=== PATIENT | female | born 1945 | race Caucasian/White ===

== ENCOUNTER 2023-05-14 09:54 | Inpatient (IN) ==
--- NOTE | 2023-04-24 10:04 | PAT Medication Instructions ---
Medication Instructions Date of Service April 24, 2023 Home Medications albuterol sulfate 90 mcg/actuation aerosol inhaler 1 inh inhalation QID PRN sob aspirin 81 mg capsule 81 mg PO QAM atorvastatin 40 mg tablet 40 mg PO QAM gabapentin 100 mg capsule 100 mg PO QAM meloxicam 15 mg tablet 15 mg PO QAM naproxen sodium 220 mg tablet 220 mg PO BID PRN Pain omeprazole 40 mg capsule,delayed release 40 mg PO QAM ropinirole 0.5 mg tablet 0.5 mg PO QPM trazodone 100 mg tablet 100 mg PO HS vit A 300 mcg-C 200 mg-E 27 mg-lutein 2 mg and minerals tablet (Healthy Eyes) 1 tab PO QPM ASK your surgeon for instructions meloxicam 15 mg tablet 15 mg PO QAM naproxen sodium 220 mg tablet 220 mg PO BID PRN Pain ASK your prescriber and surgeon aspirin 81 mg capsule 81 mg PO QAM STOP taking 2 weeks before surgery vit A 300 mcg-C 200 mg-E 27 mg-lutein 2 mg and minerals tablet (Healthy Eyes) 1 tab PO QPM Take morning of surgery With a small sip of water, OTHERWISE NOTHING TO EAT OR DRINK AFTER MIDNIGHT: albuterol sulfate 90 mcg/actuation aerosol inhaler 1 inh inhalation QID PRN sob (use if needed; please bring with you to hospital day of surgery if possible) atorvastatin 40 mg tablet 40 mg PO QAM gabapentin 100 mg capsule 100 mg PO QAM omeprazole 40 mg capsule,delayed release 40 mg PO QAM Take evening before surgery albuterol sulfate 90 mcg/actuation aerosol inhaler 1 inh inhalation QID PRN sob (if needed) ropinirole 0.5 mg tablet 0.5 mg PO QPM trazodone 100 mg tablet 100 mg PO HS Other Notes If you have any questions please call us at [phone] or [phone] or [phone] or [phone]
--- NOTE | 2023-04-30 12:34 | Anesthesiology Consultation ---
Date of Service April 30, 2023 Assessment & Plan (1) Encounter for pre-operative examination: COVID screening: Per assessment on 04/30: No known COVID-19 positive contacts or current COVID-19 related symptoms. Travel screen negative. At surgeon discretion if preop Covid testing being done. Chart Review Chart Review: Acceptable Risk for Surgery and Patient seen in Pre Admission Testing Teaching & Discussion Pre-Anesthesia Teaching/Discussion Notes: Instructed NPO after midnight before surgery,except medications with 15 cc of water. Medication instructions provided according to the PAT guidelines. History Surgery Operation Date: 05/14/23 07:45 Proposed Procedures p T10-T11 Decompression and Fusion, L3-L5 Decompression with Possible Fusion, Spinal Cord Monitoring - Patrice Flores DO Height/Weight Height: 5 ft 2 in Weight: 65.5 kg Allergies Allergy/AdvReac Type Severity Reaction Status Date / Time Sulfa (Sulfonamide Allergy itching Verified 04/23/23 13:20 Antibiotics) Medications Home Medications Medication Instructions Recorded Confirmed Last Taken albuterol sulfate 90 mcg/actuation 1 inh inhalation QID PRN sob 04/23/23 04/23/23 Unknown aerosol inhaler aspirin 81 mg capsule 81 mg PO QAM 04/23/23 04/23/23 Unknown atorvastatin 40 mg tablet 40 mg PO QAM 04/23/23 04/23/23 Unknown gabapentin 100 mg capsule 100 mg PO QAM 04/23/23 04/23/23 Unknown meloxicam 15 mg tablet 15 mg PO QAM 04/23/23 04/23/23 Unknown naproxen sodium 220 mg tablet 220 mg PO BID PRN Pain 04/23/23 04/23/23 Unknown omeprazole 40 mg capsule,delayed 40 mg PO QAM 04/23/23 04/23/23 Unknown release ropinirole 0.5 mg tablet 0.5 mg PO QPM 04/23/23 04/23/23 Unknown trazodone 100 mg tablet 100 mg PO HS 04/23/23 04/23/23 Unknown vit A 300 mcg-C 200 mg-E 27 1 tab PO QPM 04/23/23 04/23/23 Unknown mg-lutein 2 mg and minerals tablet (Healthy Eyes) Past Medical History Medical History Anxiety and depression COPD (chronic obstructive pulmonary disease) GERD (gastroesophageal reflux disease) HLD (hyperlipidemia) Incontinence of urine Memory loss, short term Osteoarthritis RLS (restless legs syndrome) Spinal stenosis Exercise / Class Metabolic Activity III < 4 Walking/Shop/Light housework (uses walker) Past Surgical History Surgical History History of cataract surgery History of left hip replacement History of tooth extraction Past Anesthesia History No Hx of Anesthesia Complications and No Family Hx of Anesthesia Complications History of PONV No Hx of PONV and No Hx of Motion Sickness Social History Smoking Status: Current some day smoker tobacco type: e-cigarettes Do You Dip or Chew Tobacco: No Smoking End Date: Quit 3 years ago cigarettes-- currently vapes on occasion Hx Alcohol Use: Yes Alcohol type: beer alcohol intake frequency: holidays/special occasions only Hx Substance Use: No substance use type: does not use Review of Systems Patient denies chest pain, shortness of breath, fever, chills, cough, wheezing, palpitations. Physical Exam Vital Signs VITALS BP 112/72 P 68 TEMP 98.2 SP02 97%RA RESP 16 PHYSICAL Full cervical extension range of motion. Full TMJ range of motion. TMD 3 finger breaths Mallampati Score 3 Dentition: edentulous Lungs: clear throughout to auscultation Cardiac: regular rate and rhythm, no murmurs noted Spine: normal Carotid arteries: negative bruit Extremities: no LE edema Lab Results Anesthesia Preop Results Results Anesthesia Widget: WBC 8.68 K/ul (4.8-10.8) 04/30/23 Hgb 13.3 g/dl (12.0-16.0) 04/30/23 Hct 40.0 % (37.0-47.0) 04/30/23 Plt 264 K/uL (130-400) 04/30/23 Na 140 mmol/L (136-145) 04/30/23 K 3.7 mmol/L (3.5-5.1) 04/30/23 Cl 108 mmol/L (98-107) H 04/30/23 CO2 27 mmol/L (21-32) 04/30/23 BUN 14 mg/dl (6-23) 04/30/23 Creat 0.68 mg/dl (0.6-1.2) 04/30/23 Glucose Level 98 mg/dl (70-99(Fasting)) 04/30/23 PT 11.0 Seconds (9.0-12.0) 04/30/23 PTT 25.0 Seconds (21.0-31.0) 04/30/23 INR 1.0 (0.9-1.1) 04/30/23 Urine Color Yellow 04/30/23 Urine Appearance Clear (Clear) 04/30/23 Urine pH 5.5 (4.5-7.5) 04/30/23 Urine Specific Lambert 1.025 (1.000-1.030) 04/30/23 Urine Protein Negative (Negative) 04/30/23 Urine Glucose (UA) Negative (Negative) 04/30/23 Urine Ketones Trace (Negative) H 04/30/23 Urine Blood Trace (Negative) H 04/30/23 Urine Nitrite Negative (Negative) 04/30/23 Urine Bilirubin Negative (Negative) 04/30/23 Urine Urobilinogen Negative (Negative) 04/30/23 Urine Leukocyte Esterase Negative (Negative) 04/30/23 Urine WBC (Auto) 1-5 /hpf (0-5) 04/30/23 Urine RBC (Auto) 0-4 /hpf (0-4) 04/30/23 Urine Hyaline Casts (Auto) 1-5 /lpf (0-5) 04/30/23 Urine Epithelial Cells (Auto) >30 /lpf (0-5) H 04/30/23 Urine Bacteria (Auto) Negative (Negative) 04/30/23 Blood Type A Negative 04/30/23 Antibody Screen NEGATIVE 04/30/23 Testing Electrocardiogram Date: 04/30/23 NSR at 61bpm. Chest X-Ray Date: 04/30/23 FINDINGS: PA and lateral chest radiographs are obtained. No prior studies are available for comparison at the time of dictation. The cardiomediastinal silhouette is unremarkable noting atherosclerotic calcification of the thoracic aorta. The lungs and pleural spaces are clear. There is no pneumothorax. The skeletal structures are osteopenic. The bony thorax appears intact. Degenerative change and mild scoliosis is noted in the spine. IMPRESSION: No active disease in the chest. COVID-19 Risk Screen Screening Information COVID-19 Screen Date: 04/30/23 Exposure 21 Days Family/Household +COVID Last 21 Days: No Exposure 10 Days Any COVID Exposure Last 10 Days: No Symptoms Last 10 Days Experienced COVID Sx Last 10 Days: No + COVID 0-90 Days COVID + in Last 0-90 Days: No
[~2023-05-14 09:54] MED LIST: ACETAMINOPHEN 500 MG TAB PO SCH; CeleBREX 200 MG CAP PO SCH; GABAPENTIN 300 MG CAP PO SCH; LR 15ML/HR IV SCH; ceFAZolin 2000MG 2,000 MG/15 ML SYR IV SCH
[2023-05-14] MEDS ORDERED: GLYCOPYRROLATE 0.2 MG/ML VIAL ONE (10:14)
[2023-05-14] MEDS ORDERED: MIDAZOLAM HCL 1 MG/ML 2ML VIAL ONE (10:14)
[2023-05-14] MEDS ORDERED: DEXAMETHASONE SOD INJ 4 MG/ML VIAL ONE (10:14)
[2023-05-14] MEDS ORDERED: fentaNYL citrate PF 100 MCG/2 ML VIAL ONE (10:14)
[2023-05-14] MEDS ORDERED: LIDOCAINE 2% 2 ML VIAL/AMP(20MG/ML) INFIL ONE (10:14)
[2023-05-14] MEDS ORDERED: PROPOFOL IV EMULSION 10 MG/ML 20 ML VIAL IV ONE (10:14)
[2023-05-14] MEDS ORDERED: NEOSTIGMINE METHYLSULFATE 1 MG/ML 10ML VIAL ONE (10:14)
[2023-05-14] MEDS ORDERED: ONDANSETRON INJ 2 MG/ML 2 ML VIAL ONE (10:14)
[2023-05-14] MEDS ORDERED: ROCURONIUM BROMIDE 10 MG/ML 5 ML VIAL IV ONE ×10 (10:16)
[2023-05-14] MEDS ORDERED: SUGAMMADEX SODIUM 200 MG/2 ML VIAL IV ONE (10:17)
[2023-05-14] MEDS ORDERED: ONDANSETRON INJ 2 MG/ML 2 ML VIAL IV PRN ×2 (11:04→17:25)
[2023-05-14] MEDS ORDERED: PROMETHAZINE HCL 6.25 MG in SODIUM CHLORIDE 0.9% 50 ML IV PRN (11:04)
[2023-05-14] MEDS ORDERED: ATROPINE SULFATE 0.1 MG/ML 10ML SYR IV PRN (11:04)
[2023-05-14] MEDS ORDERED: ePHEDrine sulfate 50 MG/ML AMP IV PRN (11:04)
--- NOTE | 2023-05-14 11:16 | History & Physical Bridge Note ---
Date of Service May 14, 2023 History & Physical Bridge Note I have examined the patient, reviewed the History & Physical and in the interval since the performance of the History & Physical I have noted the following changes of clinical significance: no changes noted
--- NOTE | 2023-05-14 11:17 | History & Physical Report ---
Date of Service May 14, 2023 Assessment & Plan (1) Myelopathy concurrent with and due to spinal stenosis of thoracic region: Plan: T10-T11 decompression and fusion, L3-L5 decompression with possible fusion History of Present Illness Chief Complaint: Back and leg pain with evidence of myelopathy Primary Care Provider: Delon Villanueva MD This is a 78-year-old female who presents my office with marked decline in status. She was diagnosed with cord compression myelopathy and is here for surgical intervention. Allergies Allergy/AdvReac Type Severity Reaction Status Date / Time Sulfa (Sulfonamide Allergy itching Verified 05/14/23 10:36 Antibiotics) Home Medications Medication Instructions Recorded Confirmed Type albuterol sulfate 90 mcg/actuation 1 inh inhalation QID PRN sob 04/23/23 05/14/23 History aerosol inhaler aspirin 81 mg capsule 81 mg PO QAM 04/23/23 05/14/23 History atorvastatin 40 mg tablet 40 mg PO QAM 04/23/23 05/14/23 History gabapentin 100 mg capsule 100 mg PO QAM 04/23/23 05/14/23 History meloxicam 15 mg tablet 15 mg PO QAM 04/23/23 05/14/23 History naproxen sodium 220 mg tablet 220 mg PO BID PRN Pain 04/23/23 05/14/23 History omeprazole 40 mg capsule,delayed 40 mg PO QAM 04/23/23 05/14/23 History release ropinirole 0.5 mg tablet 0.5 mg PO QPM 04/23/23 05/14/23 History trazodone 100 mg tablet 100 mg PO HS 04/23/23 05/14/23 History vit A 300 mcg-C 200 mg-E 27 1 tab PO QPM 04/23/23 05/14/23 History mg-lutein 2 mg and minerals tablet (Healthy Eyes) Past Med/Surg History Medical History Anxiety and depression COPD (chronic obstructive pulmonary disease) GERD (gastroesophageal reflux disease) HLD (hyperlipidemia) Incontinence of urine Memory loss, short term Osteoarthritis RLS (restless legs syndrome) Spinal stenosis Surgical History History of cataract surgery History of left hip replacement History of tooth extraction Social History (Reviewed 06/20/23 @ 10:36 by NIKA Collazo Smoking Status: Current some day smoker Smoking End Date: Quit 3 years ago cigarettes-- currently vapes on occasion; Second Hand Exposure: No; Do You Dip or Chew Tobacco: No; Tobacco Cessation Education Requested by Patient: No Hx Alcohol Use: Yes Alcohol type: beer Hx Substance Use: No Preferred Language: Bahraini Communication Ability: Effective Rn Admissions Required: No Beliefs That Will Affect Care: None Current Living Situation: Family Assistive Devices: Glasses and Walker Assistive Devices Comment: reading glasses Physical Exam Physical Exam: Patient is alert and oriented Heart regular rhythm Lungs clear Results & Data Results & Data Vital Signs (Past 12 Hours) Vital Signs Temp Pulse Resp BP Pulse Ox O2 Del Method 05/14/23 10:31 36.4 C L 75 20 117/74 97 Room Air
[2023-05-14] MEDS ORDERED: BUPIVACAINE/EPINEPHRINE 0.25% 1:200,000 30 ML VIAL ONE (11:26)
[2023-05-14] MEDS ORDERED: ceFAZolin 330 MG/ML 1 GM VIAL ONE ×2 (11:27→13:35)
[2023-05-14] MEDS ORDERED: PROPOFOL IV EMULSION 10 MG/ML 100 ML VIAL IV ONE (11:59)
[2023-05-14] MEDS ORDERED: KETAMINE 50 MG/5 ML SYRINGE ONE (12:34)
[2023-05-14] MEDS ORDERED: ePHEDrine sulfate 50 MG/ML SYR ONE (12:37)
[2023-05-14] MEDS ORDERED: FLOSEAL HEMOSTATIC MATRIX 10ML TOP ONE (12:55)
--- NOTE | 2023-05-14 14:31 | Operative Report ---
Post Operative Report Pre & Post Diagnosis Operation Date: 05/14/23 11:25 Pre-Op Diagnosis: Myelopathy concurrent with and due to spinal stenosis of thoracic region Lumbar spinal stenosis with neurogenic claudication Post-Op Diagnosis: Same I identified the patient and participated in the time-out.: Yes Procedure Operation Date: 05/14/23 11:25 Actual Procedures 1. Lumbar decompression bilaterally facetectomies and foraminotomies T10-T11 L3-L4 L4-L5. #2 posterior spinal fusion T10-T11 L3-L4 L4-L5. #3 placed posterior instrumentation T10-T11. #4 placement of infuse collagen sponge bone mass graft in the posterior gutters T10-T11 and L3-L5. #5 placement locally harvested morselized autograft and posterior gutters L3-L5. Surgeon Patrice Flores, Mucker Cofferdam Adelina Bhandari Estimated Blood Loss 250 Findings Consistent with Post-Op Diagnosis Specimens none Indications This is a 78-year-old female who presents with marked decline in neurologic status difficulty ambulating and evidence of neurogenic claudication. Subsequently she is here for surgical invention. Description of Procedure Patient was met with identified informed consent obtained. Patient was then taken to the operative suite underwent patient placed in a prone position the [place] table top Ned frame. All bony promises well-padded eyes inspected to ensure no external pressure placed monitor at this point thoracolumbar spine was prepped and draped in a sterile fashion. Identify the T10-T11 this patient sharp dissection with assistance of Bovie cautery from down to and exposing the T10-T11 lamina and transverse processes. I then performed a complete laminectomy of T10 including bilateral medial facetectomies to address severe spinal stenosis and cord compression. Pedicle screws were then placed in T10- T11 bilaterally with assistance of fluoroscopy and properly sized evelyn locked into place in place. The transverse processes of T10-T11 then burred to subcortical pain well. Infuse collagen sponge combined with master graft was then placed in the posterior gutters. I then proceeded to the lumbar spine and again sharp dissection with the assistance of Bovie cautery from down to and exposing the lamina transverse processes of L3-L4 L4-L5. From caudal cephalad fashion complete laminectomy of L4 and L3 was performed including bilateral medial facetectomies and foraminotomies addressing severe spinal stenosis. Transverse processes of L3 L4-5 were then burred to subcortical bleeding bone. Infuse bone sponge from mass graft and locally harvested morselized autograft was placed in the posterior gutters. 15 round SRUTHI drain were inserted at both levels and the incision was were closed with subcutaneous Vicryl and 4 Monocryl for final skin closure. Steri-Strips sterile dressings placed. Patient waken taken to PACU stable condition. Please note spinal cord monitoring was utilized at the procedure no changes noted. Lastly Adelina Bhandari was present at the entire procedure involved the patient positioning complex portions of the surgery and final skin closure. I attest to the content of the Intraoperative Record and any orders documented therein. Any exceptions are noted below.
[2023-05-14] MEDS: fentaNYL citrate PF 100 MCG/2 ML VIAL IV PRN ×3 (15:10→15:26)
--- NOTE | 2023-05-14 15:43 | Fluoroscopy Report ---
INTRAOPERATIVE RADIOGRAPHS CLINICAL HISTORY: Thoracic spinal fusion. Fluoro time: 37 seconds Ka,r: 10.40 mGy FINDINGS: 3 spot fluoroscopic views of the lower thoracic spine are presented. There is evidence of l aminectomy and posterior fusion at a lower thoracic spinal level. The exact level cannot be delineate d on these fluoroscopic images. This is reportedly at T10-T11. Interpedicular screws are present at b oth levels. The orthopedic hardware appears intact. IMPRESSION: Intraoperative images from thoracic spinal fusion surgery as above. Electronically signed by: Kirby Vickers M.D. 05/14/2023 3:42 PM
[2023-05-14] MEDS: HYDROmorphone INJ 1 MG/ML SYRINGE ONE ×2 (15:52→15:54)
[2023-05-14] MEDS: HYDROmorphone INJ 0.5 MG/0.5 ML SYR IV PRN ×3 (15:52→16:07)
--- NOTE | 2023-05-14 16:36 | Anesthesiology Progress Note ---
Date of Service May 14, 2023 Anesthesia Post Procedure Vital Signs Vital Signs: Temp Pulse Pulse Resp BP Pulse Ox O2 Del Method 05/14/23 16:30 36.4 C L 80 14 118/73 94 Nasal Cannula 05/14/23 16:25 83 14 97/56 L 98 Nasal Cannula 05/14/23 15:55 83 18 111/70 96 Nasal Cannula 05/14/23 16:15 75 12 110/70 93 Nasal Cannula 05/14/23 16:05 88 16 128/80 95 Nasal Cannula 05/14/23 15:45 96 H 18 127/101 H 96 Nasal Cannula 05/14/23 15:35 66 12 111/70 95 Oxymask 05/14/23 15:25 71 12 145/81 H 97 Oxymask 05/14/23 15:15 86 20 122/78 100 Oxymask 05/14/23 15:05 87 20 134/91 98 Oxymask 05/14/23 14:55 67 14 109/64 99 Oxymask 05/14/23 14:44 36.1 C L 76 12 123/66 96 Oxymask 05/14/23 10:31 36.4 C L 75 20 117/74 97 Room Air O2 Flow Rate 05/14/23 16:30 3 05/14/23 16:25 3 05/14/23 15:55 3 05/14/23 16:15 3 05/14/23 16:05 3 05/14/23 15:45 3 05/14/23 15:35 4 05/14/23 15:25 4 05/14/23 15:15 4 05/14/23 15:05 4 05/14/23 14:55 6 05/14/23 14:44 6 05/14/23 10:31 Pain Intensity Back: Pain Intensity: 7 Transfer of Care Handoff Completed per policy Notes Mental Status: alert / awake / arousable Patient Amnestic to Procedure: Yes Nausea / Vomiting: adequately controlled Pain: adequately controlled Airway Patency, RR, SpO2: stable & adequate BP & HR: stable & adequate Hydration State: stable & adequate Anesthetic Complications: no major complications apparent
[2023-05-14] MEDS ORDERED: NALOXONE HCL 0.4 MG/1 ML VIAL/CARP IV PRN (17:25)
[2023-05-14] MEDS ORDERED: ACETAMINOPHEN 1,000 MG/100 ML VIAL IV PRN (17:25)
[2023-05-14] MEDS ORDERED: HYDROmorphone INJ 0.5 MG/0.5 ML SYR IV PRN (17:25)
[2023-05-14] MEDS ORDERED: ACETAMINOPHEN 500 MG TAB PO PRN (17:25)
[2023-05-14] MEDS ORDERED: ALUMINUM/MAGNESIUM SUSP 30 ML UDC PO PRN (17:25)
[2023-05-14] MEDS ORDERED: SOD PHOSPHATE/SOD BIPHOSPHATE ENEMA 132 ML BTL PR PRN (17:25)
[2023-05-14] MEDS ORDERED: FAMOTIDINE 20 MG TAB PO PRN (17:25)
[2023-05-14] MEDS ORDERED: ONDANSETRON 4 MG OD TAB PO PRN (17:25)
[2023-05-14] MEDS ORDERED: MAGNESIUM HYDROXIDE SUSP 30 ML UDC PO PRN (17:25)
[2023-05-14] MEDS ORDERED: DO NOT ADMINISTER FLU VACCINE PRN (17:25)
[2023-05-14] MEDS ORDERED: PROMETHAZINE HCL 12.5 MG in SODIUM CHLORIDE 0.9% 50 ML IV PRN (17:25)
[2023-05-14] MEDS ORDERED: DO NOT ADMINISTER PNEUMOCOCCAL VACCINE PRN (17:25)
[2023-05-14] MEDS ORDERED: diphenhydrAMINE Capsule 25 MG CAP PO PRN (17:25)
[2023-05-14] MEDS ORDERED: LORazepam 2 MG/1 ML VIAL IV PRN (17:25)
[2023-05-14] MEDS ORDERED: METOCLOPRAMIDE HCL INJ 5 MG/ML 2 ML VIAL IV PRN (17:25)
[2023-05-14] MEDS ORDERED: bisacodyL 10 MG SUPP PR PRN (17:25)
[2023-05-14] MEDS ORDERED: ALBUTEROL HFA 8 GM INHALER INH PRN (17:25)
[2023-05-14] MEDS: LACTATED RINGER'S 1,000 ML IV SCH (17:37)
--- NOTE | 2023-05-14 18:08 | Hospitalist Consultation ---
Date of Consultation May 14, 2023 Assessment & Plan (1) S/P spinal surgery: (2) Spinal stenosis: (3) Anxiety and depression: (4) Memory loss, short term: (5) RLS (restless legs syndrome): (6) HLD (hyperlipidemia): Plan This is a 78yo F with a PMH of anxiety, restless leg syndrome, dyslipidemia, chronic back pain who is POD # 0 s/p lumbar decompression and spinal fusion by Dr. Flores. S/p spinal surgery POD#0 s/p Lumbar decompression bilaterally facetectomies and foraminotomies T10- T11 L3-L4 L4-L5, posterior spinal fusion T10-T11 L3-L4 L4-L5 and placed posterior instrumentation T10-T11 Per ortho for pain control, wound care, anticoagulation and activities Monitor H&H (EBL 250ml, pre-op hgb 13.3), continue incentive spirometry, PT/OT when appropriate Anxiety and depression Recently resumed on escitalopram, establishing with psychiatrist H/o short term memory loss Patient is currently at mentation baseline per niece with forgetfulness and poor insight. See HPI for additional info Benefits from frequent reassurance, niece available by phone for updates DLD Continue statin PCP: [facility] Dispo: Per primary service Patient seen in collaboration with Dr. Garner. Please see addendum. I spent a total of 60 minutes coordinating, documenting, and providing care for this patient excluding time spent in the performance of separately billed services. Supervising Physician Co-Signing Physician Notes Pt is a 78 y/o F with hx of HTN, HLD, RLS, Insomnia, DDD admitted for back surgery and consulted for medical comanagement PE: Pt was initially agitated due to pain --- improved with pain medication Lungs: CTA, no wheezing or crackles Cardiac: Normal S1/S2, no murmur Abd: Soft, NT, ND MSK: able to move b/l toes Psych: AAOx3 A/P: Lower thoracic and Lumbar decompression and fusion: Lumbar decompression bilaterally facetectomies and foraminotomies T10-T11 L3-L4 L4-L5. #2 posterior spinal fusion T10-T11 L3-L4 L4-L5 -POD #0 -VSS and overall normal exam -monitor hgb and Cr -pain management per Ortho -PT/OT -on bowel regimen - wean off of oxygen as tolerates HTN: -BP wnl -please continue home HTN meds Other chronic conditions: plan as above History of Present Illness Reason for Consultation: post op med mgmt Attending Physician: Patrice Flores DO History of Present Illness This is a 78yo F with a PMH of anxiety, restless leg syndrome, dyslipidemia, chronic back pain who is POD # 0 s/p lumbar decompression and spinal fusion by Dr. Flores. Patient was anxious and in pain during examination and could not provide meaningful history. History primarily obtained from niece over the phone. Patient reportedly moved in with her 6 months ago for help with medical management, daily living. At baseline, patient has "childlike" thinking with significant anxiety and some short-term memory issues. Was reportedly evaluated in the past for dementia but did not meet criteria. Feel that limited insight and impaired cognition may be due to in part to anxiety, per conversation with niece. Patient is in the process of establishing with a psychiatrist but was recently resumed on escitalopram, which is helped her in the past. Patient in significant back pain on exam and anxious to the point of tears. Denies any fever, chills, chest pain or abdominal pain. Niece states that patient can be forgetful and agitated within a conversation even with explanation of events provided. Needs ongoing reassurance. Niece available by phone as needed. Planning on short-term rehabilitation following discharge from hospital. Allergies Allergy/AdvReac Type Severity Reaction Status Date / Time Sulfa (Sulfonamide Allergy itching Verified 05/14/23 10:36 Antibiotics) Home Medications Medication Instructions Recorded Confirmed Type albuterol sulfate 90 mcg/actuation 1 inh inhalation QID PRN sob 04/23/23 05/14/23 History aerosol inhaler aspirin 81 mg capsule 81 mg PO QAM 04/23/23 05/14/23 History atorvastatin 40 mg tablet 40 mg PO QAM 04/23/23 05/14/23 History gabapentin 100 mg capsule 100 mg PO QAM 04/23/23 05/14/23 History meloxicam 15 mg tablet 15 mg PO QAM 04/23/23 05/14/23 History omeprazole 40 mg capsule,delayed 40 mg PO QAM 04/23/23 05/14/23 History release ropinirole 0.5 mg tablet 0.5 mg PO QPM 04/23/23 05/14/23 History trazodone 100 mg tablet 100 mg PO HS 04/23/23 05/14/23 History vit A 300 mcg-C 200 mg-E 27 1 tab PO QPM 04/23/23 05/14/23 History mg-lutein 2 mg and minerals tablet (Healthy Eyes) escitalopram oxalate 5 mg tablet 5 mg PO DAILY 05/14/23 05/14/23 History oxycodone 5 mg tablet 5 mg PO Q6H PRN pain #30 tabs 05/17/23 Rx tramadol 50 mg tablet 50 mg PO Q6H PRN pain, moderate 05/17/23 Rx #30 tabs Patient History Medical History (Updated 05/14/23 @ 21:40 by Fidelina Arroyo PA-C) Anxiety and depression COPD (chronic obstructive pulmonary disease) GERD (gastroesophageal reflux disease) HLD (hyperlipidemia) Incontinence of urine Memory loss, short term Osteoarthritis RLS (restless legs syndrome) Spinal stenosis Surgical History (Updated 05/14/23 @ 21:40 by Fidelina Arroyo PA-C) History of cataract surgery History of left hip replacement History of tooth extraction Family History Other Hypertension Social History Smoking Status: Current some day smoker Smoking End Date: Quit 3 years ago cigarettes-- currently vapes on occasion; Second Hand Exposure: No; Do You Dip or Chew Tobacco: No; Tobacco Cessation Education Requested by Patient: No Hx Alcohol Use: Yes Alcohol type: beer Hx Substance Use: No Preferred Language: [place]an Communication Ability: Effective 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 Physical Exam Physical Exam: Please see Dr. Garner's addendum for physical exam. Results & Data Results & Data Vital Signs (Past 12 Hours) Vital Signs Temp Pulse Pulse Pulse Resp BP BP 05/14/23 18:02 05/14/23 18:00 76 16 108/69 05/14/23 17:33 36.3 C L 71 16 119/78 05/14/23 17:12 36.3 C L 88 16 120/75 05/14/23 16:45 82 16 115/64 05/14/23 16:30 36.4 C L 80 14 118/73 05/14/23 16:25 83 14 97/56 L 05/14/23 15:55 83 18 111/70 05/14/23 16:15 75 12 110/70 05/14/23 16:05 88 16 128/80 05/14/23 15:45 96 H 18 127/101 H 05/14/23 15:35 66 12 111/70 05/14/23 15:25 71 12 145/81 H 05/14/23 15:15 86 20 122/78 05/14/23 15:05 87 20 134/91 05/14/23 14:55 67 14 109/64 05/14/23 14:44 36.1 C L 76 12 123/66 05/14/23 10:31 36.4 C L 75 20 117/74 Pulse Ox O2 Del Method O2 Flow Rate 05/14/23 18:02 Nasal Cannula 1 05/14/23 18:00 96 Room Air, Nasal Cannula 1 05/14/23 17:33 93 Nasal Cannula 1 05/14/23 17:12 98 Nasal Cannula 2 05/14/23 16:45 99 Nasal Cannula 3 05/14/23 16:30 94 Nasal Cannula 3 05/14/23 16:25 98 Nasal Cannula 3 05/14/23 15:55 96 Nasal Cannula 3 05/14/23 16:15 93 Nasal Cannula 3 05/14/23 16:05 95 Nasal Cannula 3 05/14/23 15:45 96 Nasal Cannula 3 05/14/23 15:35 95 Oxymask 4 05/14/23 15:25 97 Oxymask 4 05/14/23 15:15 100 Oxymask 4 05/14/23 15:05 98 Oxymask 4 05/14/23 14:55 99 Oxymask 6 05/14/23 14:44 96 Oxymask 6 05/14/23 10:31 97 Room Air Diagnostic Findings Lumbar Spine X-Ray 05/14/23 11:25 INTRAOPERATIVE RADIOGRAPHS CLINICAL HISTORY: Thoracic spinal fusion. Fluoro time: 37 seconds Ka,r: 10.40 mGy FINDINGS: 3 spot fluoroscopic views of the lower thoracic spine are presented. There is evidence of laminectomy and posterior fusion at a lower thoracic spinal level. The exact level cannot be delineated on these fluoroscopic images. This is reportedly at T10-T11. Interpedicular screws are present at both levels. The orthopedic hardware appears intact. IMPRESSION: Intraoperative images from thoracic spinal fusion surgery as above. Electronically signed by: Kirby Vickers M.D. 05/14/2023 3:42 PM
[2023-05-14] MEDS: HYDROmorphone INJ 1 MG/ML SYRINGE IV PRN (19:34)
[2023-05-14] MEDS: LORazepam 0.5 MG TAB PO PRN (19:39)
[2023-05-14] MEDS: dexAMETHasone 6 MG in SYRINGE 0 ML IV SCH (21:04)
[2023-05-14] MEDS: traZODone HCL 100 MG TAB PO SCH (21:05)
[2023-05-14] MEDS: ceFAZolin 1000MG 1,000 MG/7.5 ML SYR IV SCH (21:05)
[2023-05-14] MEDS: rOPINIRole HCL 0.25 MG TABLET PO SCH (21:06)
[2023-05-14] MEDS: DOCUSATE SODIUM/SENNA 50/8.6MG TAB PO SCH (21:06)
[2023-05-14] MEDS: MULTIVITAMIN TAB PO SCH (21:07)
[2023-05-15] MEDS: HYDROmorphone INJ 1 MG/ML SYRINGE IV PRN (03:02)
[2023-05-15] MEDS: oxyCODONE HCL IR 5 MG TAB (IMMEDIATE RELEASE) PO PRN ×4 (03:37→18:10)
[2023-05-15] MEDS: LACTATED RINGER'S 1,000 ML IV SCH (04:02)
[2023-05-15] MEDS: ceFAZolin 1000MG 1,000 MG/7.5 ML SYR IV SCH (04:25)
[2023-05-15] MEDS: dexAMETHasone 6 MG in SYRINGE 0 ML IV SCH ×2 (04:25→11:24)
[2023-05-15] MEDS: POLYETHYLENE (MIRALAX) 17 GM PACK PO SCH ×3 (05:42→17:15)
[2023-05-15 06:41] LABS: Basophils # (auto) 0.02 K/uL (0-0.2); Basophils % (auto) 0.1 %; Hematocrit (blood only) 33.8 % (37.0-47.0); Immature Granulocytes # (auto) 0.09 K/uL (0.01-0.20); Immature Granulocytes % (auto) 0.6 %; Lymphocytes # (auto) 1.08 K/uL (1.2-3.4); Lymphocytes % (auto) 6.7 %; Mean Corpuscular Hemoglobin 28.6 pg (25.0-34.0); Mean Corpuscular Hgb Conc 32.5 g/dL (32.0-36.0); Mean Corpuscular Volume 87.8 fL (80.0-100.0); Mean Platelet Volume 11.4 fL (9.4-12.4); Monocytes # (auto) 0.43 K/uL (0.11-0.59); Monocytes % (auto) 2.7 %; Neutrophils # (auto) 14.58 K/uL (1.40-6.50); Neutrophils % (auto) 89.9 %; Platelet Count 254 K/uL (130-400); RDW Standard Deviation 45.2 fL (36.4-46.3); Red Blood Count 3.85 M/uL (4.20-5.40)
[2023-05-15 07:04] LABS: BUN Creatinine Ratio 11.2 (10-20); Calcium 9.3 mg/dl (8.6-10.3); Creatinine Clr Calc Pharmacy 46.8 ml/min; Potassium 3.6 mmol/L (3.5-5.1)
[2023-05-15] MEDS: ESCITALOPRAM OXALATE ORAL SOLN 5 MG/5 ML PO SCH (07:35)
[2023-05-15] MEDS: GABAPENTIN 100 MG CAP PO SCH (07:35)
[2023-05-15] MEDS: ATORVASTATIN 40 MG TAB PO SCH (07:35)
[2023-05-15] MEDS: LORazepam 0.5 MG TAB PO PRN ×2 (07:35→16:26)
[2023-05-15] MEDS: ASPIRIN 81 MG ECTAB PO SCH (07:35)
[2023-05-15] MEDS: PANTOprazole 40 MG TAB PO SCH (07:35)
--- NOTE | 2023-05-15 08:12 | Orthopedic Progress Note ---
Date of Service May 15, 2023 Assessment & Plan (1) Myelopathy concurrent with and due to spinal stenosis of thoracic region: Plan: Shauna is postoperative day 1 status post T10-11 decompression and fusion, L3-5 decompression with in situ fusion. She will start physical therapy today. Continue with pain control. Maintain SRUTHI drains. She is a great candidate for rehab upon discharge. We will meet with drug abuse social worker to discuss. Admission and Anticipated Discharge Date Admission Date: May 14, 2023 Subjective Joseline Villatoro is postoperative day 1 status post T10 and T11 decompression and fusion, L3-5 decompression with in situ fusion. She is a bit agitated this morning. She has complaints of back pain. No leg symptoms. SRUTHI drain #1 output is 50 cc. SRUTHI drain #2 output is 55 cc this morning H&H are 11.0 and 33.8 respectively. Review of Systems Review of Systems: All systems reviewed & are unremarkable except as noted in HPI & below Physical Exam Physical Exam: She is alert and oriented but agitated. She is rolling around in bed. Dressing is clean dry and intact with functioning SRUTHI drains x2 Calf soft nontender bilateral Strength unchanged bilateral lower extremities Results & Data Vital Signs (Past 12 Hours) Vital Signs Temp Pulse Resp BP Pulse Ox O2 Del Method O2 Flow Rate 05/15/23 07:13 36.4 C L 86 18 131/78 96 Room Air 05/15/23 04:30 91 H 18 126/75 97 Nasal Cannula 1 05/14/23 23:00 36.6 C 83 18 109/72 94 Nasal Cannula 1 05/14/23 21:04 Nasal Cannula 1
[2023-05-15] MEDS: hydrOXYzine HCl 25 MG TAB PO PRN ×2 (11:24→20:28)
--- NOTE | 2023-05-15 14:02 | Hospitalist Progress Note ---
Date of Service May 15, 2023 Assessment & Plan (1) S/P spinal surgery: (2) Spinal stenosis: (3) Anxiety and depression: (4) Memory loss, short term: (5) RLS (restless legs syndrome): (6) HLD (hyperlipidemia): Plan This is a 78yo F with a PMH of anxiety, restless leg syndrome, dyslipidemia, chronic back pain who is POD # 0 s/p lumbar decompression and spinal fusion by Dr. Flores. Lumbar spinal stenosis with neurogenic claudication s/p spinal surgery POD#1 s/p Lumbar decompression bilaterally facetectomies and foraminotomies T10- T11 L3-L4 L4-L5, posterior spinal fusion T10-T11 L3-L4 L4-L5 and placed posterior instrumentation T10-T11 Further management including pain control, wound care, DVT prophylaxis and activities per primary team Anxiety and depression- Recently resumed on escitalopram, establishing with psychiatrist H/o short term memory loss- Patient is currently at mentation baseline per niece with forgetfulness and poor insight. See HPI for additional info; she will benefit from frequent reassurance, niece available by phone for updates Dyslipidemia- Continue statin RLS-on Requip, gabapentin Disposition-per primary team DVT prophylaxis- per primary team Admission and Anticipated Discharge Date Admission Date: May 14, 2023 Subjective Patient was seen and examined at bedside. She had worked with occupational the rapy prior to my encounter and was uncomfortable because of pain. Tolerating diet without issues. Still on Chandra. Passed gas but no movement yet. No fever, chills, chest pain or shortness of breath, nausea or vomiting. Review of Systems Review of Systems: All systems reviewed & are unremarkable except as noted in Subjective Physical Exam Physical Exam: General: Lying in bed, uncomfortable because of pain, on room air HEENT: EOMI, BRANDO, MMM Chest: Clear breath sounds bilaterally, no wheezes or crackles CVS: Regular rate and rhythm, normal heart sounds, no murmur Abdomen: Soft, non tender, not distended, normal bowel sounds Neuro: Awake, alert, oriented, conversing well, non focal Extremities: No cyanosis, clubbing or edema MSK: Back incision covered with dressing, SRUTHI drain x2 in place with serosanguineous output Results & Data Results & Data Vital Signs (Past 12 Hours) Vital Signs Temp Pulse Resp BP Pulse Ox O2 Del Method O2 Flow Rate 05/15/23 10:45 36.4 C L 82 16 116/72 94 Room Air 05/15/23 07:13 36.4 C L 86 18 131/78 96 Room Air 05/15/23 04:30 91 H 18 126/75 97 Nasal Cannula 1 Laboratory Results Short CBC 05/15/23 Range/Units 05:51 WBC 16.20 H (4.8-10.8) K/ul Hgb 11.0 L (12.0-16.0) g/dl Hct 33.8 L (37.0-47.0) % Plt Count 254 (130-400) K/uL BMP 05/15/23 05:51 Sodium 139 Potassium 3.6 Chloride 105 Carbon Dioxide 27 BUN 10 Creatinine 0.89 Glucose 157 H Calcium 9.3 Medications Administered Current Inpatient Medications Acetaminophen (Acetaminophen 500 Mg Tab) 1,000 mg PO Q8H PRN PRN Reason: MILD Pain Scale 1,2,3 & Pre PT Stop: 06/13/23 17:24 Al Hydrox/Mg Hydrox/Simethicone (Aluminum/Magnesium Susp 30 Ml Udc) 30 ml PO Q6H PRN PRN Reason: Dyspepsia Stop: 06/13/23 17:24 Albuterol (Albuterol Hfa 8 Gm Inhaler) 1 puffs INH QID PRN PRN Reason: sob Stop: 06/13/23 17:24 Aspirin (Aspirin 81 Mg Ectab) 81 mg PO QAM [facility] Stop: 06/14/23 08:59 Last Admin: 05/15/23 07:35 Dose: 81 mg Atorvastatin Calcium (Atorvastatin 40 Mg Tab) 40 mg PO QAM [facility] Stop: 06/14/23 08:59 Last Admin: 05/15/23 07:35 Dose: 40 mg Bisacodyl (Bisacodyl 10 Mg Supp) 10 mg NC DAILY PRN PRN Reason: Constipation Stop: 06/13/23 17:24 Diphenhydramine HCl (Diphenhydramine Capsule 25 Mg Cap) 25 mg PO Q6H PRN PRN Reason: Allergic Rhinitis/Insomnia Stop: 06/13/23 17:24 Escitalopram Oxalate (Escitalopram Oxalate Oral Soln 5 Mg/5 Ml) 5 mg PO DAILY [facility] Stop: 06/14/23 08:59 Last Admin: 05/15/23 07:35 Dose: 5 mg Famotidine (Famotidine 20 Mg Tab) 20 mg PO Q12H PRN PRN Reason: Dyspepsia Stop: 06/13/23 17:24 Gabapentin (Gabapentin 100 Mg Cap) 100 mg PO QAM [facility] Stop: 06/14/23 08:59 Last Admin: 05/15/23 07:35 Dose: 100 mg Hydromorphone HCl (Hydromorphone Inj 0.5 Mg/0.5 Ml Syr) 0.25 mg IV Q15M PRN PRN Reason: Pain 0.25 mg up to 2 mg Stop: 05/28/23 15:46 Last Admin: 05/14/23 16:07 Dose: 0.25 mg Hydromorphone HCl (Hydromorphone Inj 0.5 Mg/0.5 Ml Syr) 0.5 mg IV Q3H PRN PRN Reason: MODERATE Pain (Scale 4,5,6) & Pre PT Stop: 05/28/23 17:24 Hydromorphone HCl (Hydromorphone Inj 1 Mg/Ml Syringe) 1 mg IV Q3H PRN PRN Reason: SEVERE Pain (Scale 7,8,9,10) Stop: 05/28/23 17:24 Last Admin: 05/15/23 03:02 Dose: 1 mg Hydroxyzine HCl (Hydroxyzine Hcl 25 Mg Tab) 25 mg PO Q8H PRN PRN Reason: Anxiety Stop: 06/13/23 17:24 Last Admin: 05/15/23 11:24 Dose: 25 mg Promethazine HCl 12.5 mg/ (Sodium Chloride) 50.5 mls @ 202 mls/hr IV Q6H PRN PRN Reason: Nausea &/or Vomiting Stop: 06/13/23 17:24 Acetaminophen (Ofirmev) 1,000 mg in 100 mls @ 400 mls/hr IV Q8H PRN PRN Reason: Pain Rating 1-3 & Pre PT Stop: 05/15/23 17:25 Influenza Virus Vaccine Quadrival (Do Not Administer Flu Vaccine) 1 each N/A PRN PRN PRN Reason: Notification Stop: 06/13/23 17:24 Lorazepam (Lorazepam 0.5 Mg Tab) 0.5 mg PO Q8H PRN PRN Reason: Sedation/Anxiety Stop: 06/13/23 17:24 Last Admin: 05/15/23 07:35 Dose: 0.5 mg Lorazepam (Lorazepam 2 Mg/1 Ml Vial) 0.5 mg IV Q8H PRN PRN Reason: Sedation/Anxiety Stop: 06/13/23 17:24 Magnesium Hydroxide (Magnesium Hydroxide Susp 30 Ml Udc) 30 ml PO Q24H PRN PRN Reason: Constipation Stop: 06/13/23 17:24 Metoclopramide HCl (Metoclopramide Hcl Inj 5 Mg/Ml 2 Ml Vial) 10 mg IV Q6H PRN PRN Reason: Nausea &/or Vomiting Stop: 06/13/23 17:24 Multivitamins (Multivitamin Tab) 1 tab PO QPM OZZIE Stop: 06/13/23 20:59 Last Admin: 05/14/23 21:07 Dose: 1 tab Naloxone HCl (Naloxone Hcl 0.4 Mg/1 Ml Vial/Carp) 0.1 mg IV Q5M PRN PRN Reason: Oversedation/Resp depression Stop: 06/13/23 17:24 Ondansetron HCl (Ondansetron Inj 2 Mg/Ml 2 Ml Vial) 4 mg IV Q6H PRN PRN Reason: Nausea &/or Vomiting Stop: 06/13/23 17:24 Ondansetron HCl (Ondansetron 4 Mg Od Tab) 4 mg PO Q6H PRN PRN Reason: Nausea Stop: 06/13/23 17:24 Oxycodone HCl (Oxycodone Hcl Ir 5 Mg Tab (Immediate Release)) 5 - 10 mg PO Q4H PRN PRN Reason: Pain & Pre PT Stop: 05/28/23 17:24 Last Admin: 05/15/23 13:28 Dose: 10 mg Pantoprazole Sodium (Pantoprazole 40 Mg Tab) 40 mg PO QAM O[facility]IE Stop: 06/14/23 08:59 Last Admin: 05/15/23 07:35 Dose: 40 mg Pneumococcal Polyvalent Vaccine (Do Not Administer Pneumococcal Vaccine) 1 each N/A PRN PRN PRN Reason: Notification Stop: 06/13/23 17:24 Polyethylene Glycol (Polyethylene (Miralax) 17 Gm Pack) 17 gm PO Q6 OZZIE Stop: 06/14/23 05:59 Last Admin: 05/15/23 11:24 Dose: 17 gm Ropinirole HCl (Ropinirole Hcl 0.25 Mg Tablet) 0.5 mg PO QPM O[facility]IE Stop: 06/13/23 20:59 Last Admin: 05/14/23 21:06 Dose: 0.5 mg Senna/Docusate Sodium (Docusate Sodium/Senna 50/8.6mg Tab) 2 tab PO HS OZZIE Stop: 06/13/23 20:59 Last Admin: 05/14/23 21:06 Dose: 2 tab Sodium Biphosphate/Sodium Phosphate (Sod Phosphate/Sod Biphosphate Enema 132 Ml Btl) 132 ml NC ONE PRN PRN Reason: Constipation Stop: 06/13/23 17:24 Tramadol HCl (Tramadol Hcl 50 Mg Tablet) 50 - 100 mg PO Q4H PRN PRN Reason: Moderate-Severe pain & Pre PT Stop: 06/13/23 17:24 Trazodone HCl (Trazodone Hcl 100 Mg Tab) 100 mg PO OZZIE Stop: 06/13/23 20:59 Last Admin: 05/14/23 21:05 Dose: 100 mg
[2023-05-15] MEDS: MULTIVITAMIN TAB PO SCH (20:13)
[2023-05-15] MEDS: rOPINIRole HCL 0.25 MG TABLET PO SCH (20:13)
[2023-05-15] MEDS: traZODone HCL 100 MG TAB PO SCH (20:14)
[2023-05-15] MEDS: DOCUSATE SODIUM/SENNA 50/8.6MG TAB PO SCH (20:14)
[2023-05-16] MEDS: POLYETHYLENE (MIRALAX) 17 GM PACK PO SCH ×4 (00:31→18:37)
[2023-05-16] MEDS: oxyCODONE HCL IR 5 MG TAB (IMMEDIATE RELEASE) PO PRN ×3 (00:38→13:36)
[2023-05-16] MEDS: LORazepam 0.5 MG TAB PO PRN ×2 (04:48→16:39)
[2023-05-16] MEDS: ESCITALOPRAM OXALATE ORAL SOLN 5 MG/5 ML PO SCH (07:39)
[2023-05-16] MEDS: ASPIRIN 81 MG ECTAB PO SCH (07:41)
[2023-05-16] MEDS: GABAPENTIN 100 MG CAP PO SCH (07:42)
[2023-05-16] MEDS: ATORVASTATIN 40 MG TAB PO SCH (07:42)
[2023-05-16] MEDS: PANTOprazole 40 MG TAB PO SCH (07:43)
--- NOTE | 2023-05-16 09:57 | Orthopedic Progress Note ---
Date of Service May 16, 2023 Assessment & Plan (1) Myelopathy concurrent with and due to spinal stenosis of thoracic region: Plan: At this time continue physical therapy and hope for placement to rehab if accepted if not she would be a candidate for home health. Admission and Anticipated Discharge Date Admission Date: May 14, 2023 Subjective Patient is complaining of back pain. Leg pain is improved. Physical Exam Physical Exam: Patient is ambulating the halls with a walker. She is uncomfortable secondary to her back. Skin strength testing otherwise. Results & Data Vital Signs (Past 12 Hours) Vital Signs Temp Pulse Resp BP Pulse Ox O2 Del Method 05/16/23 07:51 36.6 C 87 16 118/76 96 Room Air
--- NOTE | 2023-05-16 12:10 | Hospitalist Progress Note ---
Date of Service May 16, 2023 Assessment & Plan (1) S/P spinal surgery: (2) Spinal stenosis: (3) Anxiety and depression: (4) Memory loss, short term: (5) RLS (restless legs syndrome): (6) HLD (hyperlipidemia): Plan This is a 78yo F with a PMH of anxiety, restless leg syndrome, dyslipidemia, chronic back pain who is POD # 0 s/p lumbar decompression and spinal fusion by Dr. Flores. Lumbar spinal stenosis with neurogenic claudication s/p spinal surgery POD#2 s/p Lumbar decompression bilaterally facetectomies and foraminotomies T10- T11 L3-L4 L4-L5, posterior spinal fusion T10-T11 L3-L4 L4-L5 and placed posterior instrumentation T10-T11 Further management including pain control, wound care, DVT prophylaxis and activities per primary team Anxiety and depression- Recently resumed on escitalopram, establishing with psychiatrist H/o short term memory loss- Patient is currently at mentation baseline per niece with forgetfulness and poor insight. See HPI for additional info; she will benefit from frequent reassurance, niece available by phone for updates Dyslipidemia- Continue statin RLS-on Requip, gabapentin Disposition-per primary team DVT prophylaxis- per primary team Admission and Anticipated Discharge Date Admission Date: May 14, 2023 Subjective Patient was seen and examined at bedside. She continues with pain and discomfo rt. Normal oral intake. Still has not had a bowel movement yet. No fever, chills, chest pain or shortness of breath nausea vomiting Review of Systems Review of Systems: All systems reviewed & are unremarkable except as noted in Subjective Physical Exam Physical Exam: General: Sitting in chair, somewhat uncomfortable because of pain, on room air HEENT: EOMI, BRANDO, MMM Chest: Clear breath sounds bilaterally, no wheezes or crackles CVS: Regular rate and rhythm, normal heart sounds, no murmur Abdomen: Soft, non tender, not distended, normal bowel sounds Neuro: Awake, alert, oriented, conversing well, non focal Extremities: No cyanosis, clubbing or edema MSK: Back incision covered with dressing, SRUTHI drain x2 in place with serosanguineous output Results & Data Results & Data Vital Signs (Past 12 Hours) Vital Signs Temp Pulse Resp BP Pulse Ox O2 Del Method 05/16/23 07:51 36.6 C 87 16 118/76 96 Room Air Medications Administered Current Inpatient Medications Acetaminophen (Acetaminophen 500 Mg Tab) 1,000 mg PO Q8H PRN PRN Reason: MILD Pain Scale 1,2,3 & Pre PT Stop: 06/13/23 17:24 Al Hydrox/Mg Hydrox/Simethicone (Aluminum/Magnesium Susp 30 Ml Udc) 30 ml PO Q6H PRN PRN Reason: Dyspepsia Stop: 06/13/23 17:24 Albuterol (Albuterol Hfa 8 Gm Inhaler) 1 puffs INH QID PRN PRN Reason: sob Stop: 06/13/23 17:24 Aspirin (Aspirin 81 Mg Ectab) 81 mg PO QAM [facility] Stop: 06/14/23 08:59 Last Admin: 05/16/23 07:41 Dose: 81 mg Atorvastatin Calcium (Atorvastatin 40 Mg Tab) 40 mg PO QAM [facility] Stop: 06/14/23 08:59 Last Admin: 05/16/23 07:42 Dose: 40 mg Bisacodyl (Bisacodyl 10 Mg Supp) 10 mg [place] DAILY PRN PRN Reason: Constipation Stop: 06/13/23 17:24 Diphenhydramine HCl (Diphenhydramine Capsule 25 Mg Cap) 25 mg PO Q6H PRN PRN Reason: Allergic Rhinitis/Insomnia Stop: 06/13/23 17:24 Escitalopram Oxalate (Escitalopram Oxalate Oral Soln 5 Mg/5 Ml) 5 mg PO DAILY [facility] Stop: 06/14/23 08:59 Last Admin: 05/16/23 07:39 Dose: 5 mg Famotidine (Famotidine 20 Mg Tab) 20 mg PO Q12H PRN PRN Reason: Dyspepsia Stop: 06/13/23 17:24 Gabapentin (Gabapentin 100 Mg Cap) 100 mg PO QAM [facility] Stop: 06/14/23 08:59 Last Admin: 05/16/23 07:42 Dose: 100 mg Hydromorphone HCl (Hydromorphone Inj 0.5 Mg/0.5 Ml Syr) 0.25 mg IV Q15M PRN PRN Reason: Pain 0.25 mg up to 2 mg Stop: 05/28/23 15:46 Last Admin: 05/14/23 16:07 Dose: 0.25 mg Hydromorphone HCl (Hydromorphone Inj 0.5 Mg/0.5 Ml Syr) 0.5 mg IV Q3H PRN PRN Reason: MODERATE Pain (Scale 4,5,6) & Pre PT Stop: 05/28/23 17:24 Hydromorphone HCl (Hydromorphone Inj 1 Mg/Ml Syringe) 1 mg IV Q3H PRN PRN Reason: SEVERE Pain (Scale 7,8,9,10) Stop: 05/28/23 17:24 Last Admin: 05/15/23 03:02 Dose: 1 mg Hydroxyzine HCl (Hydroxyzine Hcl 25 Mg Tab) 25 mg PO Q8H PRN PRN Reason: Anxiety Stop: 06/13/23 17:24 Last Admin: 05/15/23 20:28 Dose: 25 mg Promethazine HCl 12.5 mg/ (Sodium Chloride) 50.5 mls @ 202 mls/hr IV Q6H PRN PRN Reason: Nausea &/or Vomiting Stop: 06/13/23 17:24 Influenza Virus Vaccine Quadrival (Do Not Administer Flu Vaccine) 1 each N/A PRN PRN PRN Reason: Notification Stop: 06/13/23 17:24 Lorazepam (Lorazepam 0.5 Mg Tab) 0.5 mg PO Q8H PRN PRN Reason: Sedation/Anxiety Stop: 06/13/23 17:24 Last Admin: 05/16/23 04:48 Dose: 0.5 mg Lorazepam (Lorazepam 2 Mg/1 Ml Vial) 0.5 mg IV Q8H PRN PRN Reason: Sedation/Anxiety Stop: 06/13/23 17:24 Magnesium Hydroxide (Magnesium Hydroxide Susp 30 Ml Udc) 30 ml PO Q24H PRN PRN Reason: Constipation Stop: 06/13/23 17:24 Metoclopramide HCl (Metoclopramide Hcl Inj 5 Mg/Ml 2 Ml Vial) 10 mg IV Q6H PRN PRN Reason: Nausea &/or Vomiting Stop: 06/13/23 17:24 Multivitamins (Multivitamin Tab) 1 tab PO QPM [facility] Stop: 06/13/23 20:59 Last Admin: 05/15/23 20:13 Dose: 1 tab Naloxone HCl (Naloxone Hcl 0.4 Mg/1 Ml Vial/Carp) 0.1 mg IV Q5M PRN PRN Reason: Oversedation/Resp depression Stop: 06/13/23 17:24 Ondansetron HCl (Ondansetron Inj 2 Mg/Ml 2 Ml Vial) 4 mg IV Q6H PRN PRN Reason: Nausea &/or Vomiting Stop: 06/13/23 17:24 Ondansetron HCl (Ondansetron 4 Mg Od Tab) 4 mg PO Q6H PRN PRN Reason: Nausea Stop: 06/13/23 17:24 Oxycodone HCl (Oxycodone Hcl Ir 5 Mg Tab (Immediate Release)) 5 - 10 mg PO Q4H PRN PRN Reason: Pain & Pre PT Stop: 05/28/23 17:24 Last Admin: 05/16/23 05:32 Dose: 10 mg Pantoprazole Sodium (Pantoprazole 40 Mg Tab) 40 mg PO QAM [facility] Stop: 06/14/23 08:59 Last Admin: 05/16/23 07:43 Dose: 40 mg Pneumococcal Polyvalent Vaccine (Do Not Administer Pneumococcal Vaccine) 1 each N/A PRN PRN PRN Reason: Notification Stop: 06/13/23 17:24 Polyethylene Glycol (Polyethylene (Miralax) 17 Gm Pack) 17 gm PO Q6 [facility] Stop: 06/14/23 05:59 Last Admin: 05/16/23 05:32 Dose: 17 gm Ropinirole HCl (Ropinirole Hcl 0.25 Mg Tablet) 0.5 mg PO QPM [facility] Stop: 06/13/23 20:59 Last Admin: 05/15/23 20:13 Dose: 0.5 mg Senna/Docusate Sodium (Docusate Sodium/Senna 50/8.6mg Tab) 2 tab PO HS [facility] Stop: 06/13/23 20:59 Last Admin: 05/15/23 20:14 Dose: 2 tab Sodium Biphosphate/Sodium Phosphate (Sod Phosphate/Sod Biphosphate Enema 132 Ml Btl) 132 ml [place] ONE PRN PRN Reason: Constipation Stop: 06/13/23 17:24 Tramadol HCl (Tramadol Hcl 50 Mg Tablet) 50 - 100 mg PO Q4H PRN PRN Reason: Moderate-Severe pain & Pre PT Stop: 06/13/23 17:24 Trazodone HCl (Trazodone Hcl 100 Mg Tab) 100 mg PO HS [facility] Stop: 06/13/23 20:59 Last Admin: 05/15/23 20:14 Dose: 100 mg
[2023-05-16] MEDS: hydrOXYzine HCl 25 MG TAB PO PRN (20:30)
[2023-05-16] MEDS: DOCUSATE SODIUM/SENNA 50/8.6MG TAB PO SCH (20:30)
[2023-05-16] MEDS: HYDROmorphone INJ 1 MG/ML SYRINGE IV PRN (20:30)
[2023-05-16] MEDS: traZODone HCL 100 MG TAB PO SCH (20:31)
[2023-05-16] MEDS: rOPINIRole HCL 0.25 MG TABLET PO SCH (20:32)
[2023-05-16] MEDS: MULTIVITAMIN TAB PO SCH (20:32)
[2023-05-17] MEDS: oxyCODONE HCL IR 5 MG TAB (IMMEDIATE RELEASE) PO PRN ×4 (00:02→15:47)
[2023-05-17] MEDS: LORazepam 0.5 MG TAB PO PRN (00:03)
[2023-05-17] MEDS: POLYETHYLENE (MIRALAX) 17 GM PACK PO SCH ×4 (01:32→17:20)
[2023-05-17 06:02] LABS: BUN Creatinine Ratio 19.2 (10-20); Creatinine Clr Calc Pharmacy 53.4 ml/min; Est GFR (African American) 85.6 ml/min; Est GFR (Non-African American) 73.8 ml/min
[2023-05-17 06:14] LABS: Hematocrit (blood only) 34.6 % (37.0-47.0); Hemoglobin 11.5 g/dl (12.0-16.0); Mean Corpuscular Hemoglobin 28.8 pg (25.0-34.0); Mean Corpuscular Hgb Conc 33.2 g/dL (32.0-36.0); Mean Corpuscular Volume 86.7 fL (80.0-100.0); Mean Platelet Volume 11.7 fL (9.4-12.4); Platelet Count 191 K/uL (130-400); RDW Coefficient of Variation 14.3 % (11.5-14.5); RDW Standard Deviation 45.2 fL (36.4-46.3); Red Blood Count 3.99 M/uL (4.20-5.40); White Blood Count 14.91 K/ul (4.8-10.8)
[2023-05-17] MEDS: traMADol HCL 50 MG TABLET PO PRN ×3 (07:36→12:28)
[2023-05-17] MEDS: hydrOXYzine HCl 25 MG TAB PO PRN (07:41)
[2023-05-17] MEDS: ATORVASTATIN 40 MG TAB PO SCH (08:48)
[2023-05-17] MEDS: GABAPENTIN 100 MG CAP PO SCH (08:48)
[2023-05-17] MEDS: PANTOprazole 40 MG TAB PO SCH (08:48)
[2023-05-17] MEDS: ASPIRIN 81 MG ECTAB PO SCH (08:48)
[2023-05-17] MEDS: ESCITALOPRAM OXALATE ORAL SOLN 5 MG/5 ML PO SCH (08:49)
--- NOTE | 2023-05-17 09:25 | Orthopedic Progress Note ---
Date of Service May 17, 2023 Assessment & Plan (1) Myelopathy concurrent with and due to spinal stenosis of thoracic region: Plan: * This time the SRUTHI drains are decreasing appropriately. She is cleared for rehab. We will discharge her today when bed is available. Admission and Anticipated Discharge Date Admission Date: May 14, 2023 Subjective Patient complaining of back pain leg symptoms improved. She is tolerating physical therapy. Physical Exam Physical Exam: Patient is in the chair at the bedside. Skin strength testing. Results & Data Vital Signs (Past 12 Hours) Vital Signs Temp Pulse Resp BP Pulse Ox O2 Del Method 05/17/23 07:07 36.8 C 95 H 16 104/69 92 Room Air
--- NOTE | 2023-05-17 13:38 | Hospitalist Progress Note ---
Date of Service May 17, 2023 Assessment & Plan (1) S/P spinal surgery: (2) Spinal stenosis: (3) Anxiety and depression: (4) Memory loss, short term: (5) RLS (restless legs syndrome): (6) HLD (hyperlipidemia): Plan This is a 78yo F with a PMH of anxiety, restless leg syndrome, dyslipidemia, chronic back pain who is s/p lumbar decompression and spinal fusion by Dr. Flores. Lumbar spinal stenosis with neurogenic claudication s/p spinal surgery POD#3 s/p Lumbar decompression bilaterally facetectomies and foraminotomies T10- T11 L3-L4 L4-L5, posterior spinal fusion T10-T11 L3-L4 L4-L5 and placed posterior instrumentation T10-T11 Further management including pain control, wound care, DVT prophylaxis and activities per primary team Anxiety and depression- Recently resumed on escitalopram, establishing with psychiatrist H/o short term memory loss- Patient is currently at mentation baseline per niece with forgetfulness and poor insight. See HPI for additional info; she will benefit from frequent reassurance, niece available by phone for updates Dyslipidemia- Continue statin RLS-on Requip, gabapentin Leukocytosis-likely reactive/related to dexamethasone. Improving. Afebrile, clinically stable, no focal source of infection. No indication for ABx. Disposition-per primary team. Medically stable. DVT prophylaxis- per primary team Admission and Anticipated Discharge Date Admission Date: May 14, 2023 Subjective Patient was seen and examined at bedside. Seems uncomfortable due to pain and constantly moving try to find a comfortable position. Denies any other issues. No fever, chills, chest pain, shortness of breath, nausea or vomiting. normal oral intake. Denies having a bowel movement yet Review of Systems Review of Systems: All systems reviewed & are unremarkable except as noted in Subjective Physical Exam Physical Exam: General: Sitting in chair, somewhat uncomfortable because of pain, on room air HEENT: EOMI, BRANDO, MMM Chest: Clear breath sounds bilaterally, no wheezes or crackles CVS: Regular rate and rhythm, normal heart sounds, no murmur Abdomen: Soft, non tender, not distended, normal bowel sounds Neuro: Awake, alert, oriented, conversing well, non focal Extremities: No cyanosis, clubbing or edema MSK: Back incision covered with dressing, SRUTHI drain x2 in place with serosanguineous output Results & Data Results & Data Vital Signs (Past 12 Hours) Vital Signs Temp Pulse Resp BP BP Pulse Ox O2 Del Method 05/17/23 11:12 85 113/71 94 Room Air 05/17/23 07:07 36.8 C 95 H 16 104/69 92 Room Air Laboratory Results Short CBC 05/17/23 Range/Units 05:30 WBC 14.91 H (4.8-10.8) K/ul Hgb 11.5 L (12.0-16.0) g/dl Hct 34.6 L (37.0-47.0) % Plt Count 191 (130-400) K/uL BMP 05/17/23 05:30 Sodium 139 Potassium 4.0 Chloride 103 Carbon Dioxide 30 BUN 15 Creatinine 0.78 Glucose 96 Calcium 9.0 Medications Administered Current Inpatient Medications Acetaminophen (Acetaminophen 500 Mg Tab) 1,000 mg PO Q8H PRN PRN Reason: MILD Pain Scale 1,2,3 & Pre PT Stop: 06/13/23 17:24 Last Admin: 05/16/23 15:24 Dose: 1,000 mg Al Hydrox/Mg Hydrox/Simethicone (Aluminum/Magnesium Susp 30 Ml Udc) 30 ml PO Q6H PRN PRN Reason: Dyspepsia Stop: 06/13/23 17:24 Albuterol (Albuterol Hfa 8 Gm Inhaler) 1 puffs INH QID PRN PRN Reason: sob Stop: 06/13/23 17:24 Aspirin (Aspirin 81 Mg Ectab) [facility] [place]: 06/14/23 08:59 Last Admin: 05/17/23 08:48 Dose: 81 mg Atorvastatin Calcium (Atorvastatin 40 Mg Tab) 40 mg PO QAM [facility] Stop: 06/14/23 08:59 Last Admin: 05/17/23 08:48 Dose: 40 mg Bisacodyl (Bisacodyl 10 Mg Supp) 10 mg NH DAILY PRN PRN Reason: Constipation Stop: 06/13/23 17:24 Diphenhydramine HCl (Diphenhydramine Capsule 25 Mg Cap) 25 mg PO Q6H PRN PRN Reason: Allergic Rhinitis/Insomnia Stop: 06/13/23 17:24 Escitalopram Oxalate (Escitalopram Oxalate Oral Soln 5 Mg/5 Ml) 5 mg PO DAILY [facility] Stop: 06/14/23 08:59 Last Admin: 05/17/23 08:49 Dose: 5 mg Famotidine (Famotidine 20 Mg Tab) 20 mg PO Q12H PRN PRN Reason: Dyspepsia Stop: 06/13/23 17:24 Gabapentin (Gabapentin 100 Mg Cap) 100 mg PO QAM O[facility]IE Stop: 06/14/23 08:59 Last Admin: 05/17/23 08:48 Dose: 100 mg Hydromorphone HCl (Hydromorphone Inj 0.5 Mg/0.5 Ml Syr) 0.25 mg IV Q15M PRN PRN Reason: Pain 0.25 mg up to 2 mg Stop: 05/28/23 15:46 Last Admin: 05/14/23 16:07 Dose: 0.25 mg Hydromorphone HCl (Hydromorphone Inj 0.5 Mg/0.5 Ml Syr) 0.5 mg IV Q3H PRN PRN Reason: MODERATE Pain (Scale 4,5,6) & Pre PT Stop: 05/28/23 17:24 Hydromorphone HCl (Hydromorphone Inj 1 Mg/Ml Syringe) 1 mg IV Q3H PRN PRN Reason: SEVERE Pain (Scale 7,8,9,10) Stop: 05/28/23 17:24 Last Admin: 05/16/23 20:30 Dose: 1 mg Hydroxyzine HCl (Hydroxyzine Hcl 25 Mg Tab) 25 mg PO Q8H PRN PRN Reason: Anxiety Stop: 06/13/23 17:24 Last Admin: 05/17/23 07:41 Dose: 25 mg Promethazine HCl 12.5 mg/ (Sodium Chloride) 50.5 mls @ 202 mls/hr IV Q6H PRN PRN Reason: Nausea &/or Vomiting Stop: 06/13/23 17:24 Influenza Virus Vaccine Quadrival (Do Not Administer Flu Vaccine) 1 each N/A PRN PRN PRN Reason: Notification Stop: 06/13/23 17:24 Lorazepam (Lorazepam 0.5 Mg Tab) 0.5 mg PO Q8H PRN PRN Reason: Sedation/Anxiety Stop: 06/13/23 17:24 Last Admin: 05/17/23 00:03 Dose: 0.5 mg Lorazepam (Lorazepam 2 Mg/1 Ml Vial) 0.5 mg IV Q8H PRN PRN Reason: Sedation/Anxiety Stop: 06/13/23 17:24 Magnesium Hydroxide (Magnesium Hydroxide Susp 30 Ml Udc) 30 ml PO Q24H PRN PRN Reason: Constipation Stop: 06/13/23 17:24 Metoclopramide HCl (Metoclopramide Hcl Inj 5 Mg/Ml 2 Ml Vial) 10 mg IV Q6H PRN PRN Reason: Nausea &/or Vomiting Stop: 06/13/23 17:24 Multivitamins (Multivitamin Tab) 1 tab PO QPM OZZIE Stop: 06/13/23 20:59 Last Admin: 05/16/23 20:32 Dose: 1 tab Naloxone HCl (Naloxone Hcl 0.4 Mg/1 Ml Vial/Carp) 0.1 mg IV Q5M PRN PRN Reason: Oversedation/Resp depression Stop: 06/13/23 17:24 Ondansetron HCl (Ondansetron Inj 2 Mg/Ml 2 Ml Vial) 4 mg IV Q6H PRN PRN Reason: Nausea &/or Vomiting Stop: 06/13/23 17:24 Ondansetron HCl (Ondansetron 4 Mg Od Tab) 4 mg PO Q6H PRN PRN Reason: Nausea Stop: 06/13/23 17:24 Oxycodone HCl (Oxycodone Hcl Ir 5 Mg Tab (Immediate Release)) 5 - 10 mg PO Q4H PRN PRN Reason: Pain & Pre PT Stop: 05/28/23 17:24 Last Admin: 05/17/23 09:46 Dose: 10 mg Pantoprazole Sodium (Pantoprazole 40 Mg Tab) 40 mg PO QAM OZZIE Stop: 06/14/23 08:59 Last Admin: 05/17/23 08:48 Dose: 40 mg Pneumococcal Polyvalent Vaccine (Do Not Administer Pneumococcal Vaccine) 1 each N/A PRN PRN PRN Reason: Notification Stop: 06/13/23 17:24 Polyethylene Glycol (Polyethylene (Miralax) 17 Gm Pack) 17 gm PO Q6 [facility] Stop: 06/14/23 05:59 Last Admin: 05/17/23 12:29 Dose: 17 gm Ropinirole HCl (Ropinirole Hcl 0.25 Mg Tablet) 0.5 mg PO QPM OZZIE Stop: 07/20/23 20:59 Last Admin: 05/16/23 20:32 Dose: 0.5 mg Senna/Docusate Sodium (Docusate Sodium/Senna 50/8.6mg Tab) 2 tab PO [facility] Stop: 06/13/23 20:59 Last Admin: 05/16/23 20:30 Dose: 2 tab Sodium Biphosphate/Sodium Phosphate (Sod Phosphate/Sod Biphosphate Enema 132 Ml Btl) 132 ml [place] ONE PRN PRN Reason: Constipation Stop: 06/13/23 17:24 Tramadol HCl (Tramadol Hcl 50 Mg Tablet) 50 - 100 mg PO Q4H PRN PRN Reason: Moderate-Severe pain & Pre PT Stop: 06/13/23 17:24 Last Admin: 05/17/23 12:28 Dose: 100 mg Trazodone HCl (Trazodone Hcl 100 Mg Tab) 100 mg PO [facility] Stop: 06/13/23 20:59 Last Admin: 05/16/23 20:31 Dose: 100 mg
[2023-05-17] MEDS: HYDROmorphone INJ 1 MG/ML SYRINGE IV PRN (15:52)
--- NOTE | 2023-05-27 07:46 | Discharge Summary ---
Date of Service May 27, 2023 Admission HPI Per Admitting Provider This is a 78-year-old female who presents my office with marked decline in status. She was diagnosed with cord compression myelopathy and is here for surgical intervention. Admission Exam (Per Admitting) Constitutional WD/WN, vitals as above Eyes normal visual iverson by confrontation ENMT external ear and nose normal, oropharynx normal Neck normal visual inspection Respiratory normal respiratory effort Cardiovascular Extremities: normal capillary refill Gastrointestinal (Abdomen) Inspection/Auscultation: abdomen normal to inspection Musculoskeletal Spine: + lumbar spinal tenderness Extremities: extremities normal to inspection Skin no rashes, warm and dry Neurologic normal touch/pain/proprioception and moves all extremities Psychiatric A+Ox3, euthymic affect Eye Contact: good eye contact Discharge Data Consultations 05/14/23 17:25 Consult Hospitalist Routine Procedures Performed Operation Date: 05/14/23 11:25 Actual Procedures p T10-T11 Decompression and Fusion, L3-L5 Decompression, Spinal Cord Monito ring(Not Applicable) - Patrice Flores, DO Hospital Course (1) Spinal stenosis: Shauna underwent a multilevel thoracolumbar decompression and fusion by Dr. Flores on May 14, 2023. She had an uneventful hospital course. She participated in physical therapy and made progress daily. Pain was under control. Lab values stable. She was ultimately discharged on May 17, [address] [facility] for rehab. Discharge Instructions ACTIVITY RECOMMENDATIONS: SELF CARE INSTRUCTIONS AFTER THORACIC/LUMBAR FUSIONS 1. You may walk to your tolerance. It is good exercise for your legs and back. Expect some back and intermittent leg aches and pains. 2. You may perform "counter-top" level activities (make a sandwich, iram with a project, etc.). 3. No bending or lifting of more than 10 pounds or back twisting of any nature (roll like a log when turning in bed). 4. You may ride in a car for 20-30 minutes at a time. No driving until after your first visit with your doctor. 5. Frequent changes of position and restricting sitting to 30 minutes at a time will help limit the amount of back spasms and stiffness you may experience. 6. You may discontinue the use of ambulatory aids (cane, crutches, etc.) once your strength and confidence allow. 7. You may interventionist the shower and let water strike your incision when you arrive home at least once daily. Do not take a tub bath, sit in a hot tub or go into a swimming pool until after your first recheck in the office. SPECIAL CARE INSTRUCTIONS: VERY IMPORTANT TO READ AND REVIEW A. Your surgical incision has been closed with a cosmetic suture under the skin that will dissolve in about 6 weeks. In 14 days, you can use a pair of clean scissors and cut the suture that is left outside of the skin at the ends of your incision. 1. The small skin tapes can be removed 7 days after surgery if they have not fallen off by that point. 2. You may keep the wound open to air as much as possible to promote healing after post-op day number 5 unless told otherwise by your doctor. 3. If you think the wound looks like it is becoming infected (redness or worsening drainage) and/or you are experiencing fever, chill or worsening back pain and muscle spasms, contact the office so that we may evaluate you as soon as possible. B. Complications are uncommon, but please contact us if you have any signs or symptoms of: 1. wound infection (fever higher than 102.5 degrees F, redness, separation of wound, drainage, or increasing pain from the incision) 2. blood clots in legs (pain, swelling, redness and warmth in legs) 3. urinary tract infection (fever higher than 102.5 degrees F, burning upon urination or increased frequency of urination) 4. nerve problems (inability to walk on your toes or heels, numbness, loss of bowel or bladder control) 5. any other symptoms that concern you C. Please call the office at if you have any concerns or questions about your operation or recovery. D. No smoking! Smoking drastically decreases the chance of a solid fusion. E. Do not take any anti-inflammatory medications (Indocin, Advil, Motrin, Aspirin, Naprosyn, etc.) as these may inhibit the chance of a solid fusion. Tylenol is okay to take for pain. MANAGING PAIN AFTER SPINAL SURGERY 1. Narcotic medication is intended for short-term use and will be provided for surgical pain. Surgical pain usually lasts for a period of 4-6 weeks. Narcotic medication includes Percocet, Vicodin, Darvocet, Tylenol #3 or Lortab. 2. Longer-term pain is more appropriately treated with non-narcotic medication such as Tylenol ES. 3. Muscle spasm is not appropriately treated with narcotics. Muscle relaxers such as Soma, Flexeril or Skelaxin can be used along with Tylenol ES. 4. Remember that we all live with some "aches and pains". This is not unusual or uncommon after an injury or as we get older. a. Back pain is expected and may include muscle spasms for 4 to 6 weeks after surgery. The pain should gradually improve. If the pain worsens for no apparent reason, please contact the office. b. Intermittent leg pain may also be experienced and should not be concerned about unless it worsens for no apparent reason. If so, please contact the office. 5. We will provide appropriate medication within the normal guidelines of their prescribed use. We will also be very cautious and aware of potential abuse and extended duration of patients' medication needs. a. Pain medications are for your comfort and to assist with sleep and rest so that the tissue can heal. They are not provided in order to return to normal activity and should not be used through the day. To do so or worsening pain at night can result from ongoing tissue damage and development of tolerance to the prescribed medicine. 6. Please allow 2-3 days to process refills. Prescriptions will not be mailed but must be picked up at the office. FOLLOW UP VISIT: Keep your scheduled follow-up appointment. Any questions, please call the office at .
== END 2023-05-17 19:18 | DRG 460 ==
LOC: ASU 09:54 → 3E 14:34